=== PATIENT | female | born 2000 | race Caucasian/White ===

== ENCOUNTER → 2018-04-02 | Outpatient (CLI) | payer OTHER ==
[~2018-04-02] MED LIST: ACET-3017 PO; IBUP800T37 PO; SERT-184 PO
== END ==
LOC: LAB 15:34
PROVIDERS: ATTEND Obstetrics & Gynecology
DX: Z11.3 Encounter for screening for infections with a predominantly sexual mode of transmission (principal); Z11.8 Encounter for screening for other infectious and parasitic diseases
CPT/HCPCS: 87491; 87591

== ENCOUNTER → 2018-11-15 | Outpatient (CLI) | payer OTHER ==
[~2018-11-15] MED LIST changes: +FLU60VIA41 IM; +LEVO1IUD6; +SERT-181 PO
== END ==
LOC: LAB 08:35
PROVIDERS: ATTEND Obstetrics & Gynecology
DX: Z11.3 Encounter for screening for infections with a predominantly sexual mode of transmission (principal); Z11.8 Encounter for screening for other infectious and parasitic diseases; N94.9 Unspecified condition associated with female genital organs and menstrual cycle
CPT/HCPCS: 36415; 86592; 86703; 86803; 87210; 87340; 87491; 87591

== ENCOUNTER → 2018-12-12 | Outpatient (CLI) | payer OTHER ==
[2018-12-12 12:24] LABS: PLATELET COUNT, AUTOMATED 348 K/uL (150-450)
== END ==
LOC: LAB 11:38
PROVIDERS: ATTEND Obstetrics & Gynecology
DX: R10.31 Right lower quadrant pain (principal)
CPT/HCPCS: 36415; 82040; 82247; 82310; 82374; 82435; 82565; 82947; 84075; 84132; 84155; 84295; 84450; 84460; 84520; 85025; 87491; 87591

== ENCOUNTER → 2018-12-12 | Outpatient (CLI) | payer OTHER ==
[~2018-12-12] MED LIST changes: +ONDA4TAB97 PO; +TAMS0.4C25 PO
--- NOTE | 2018-12-12 14:40 | RADIOLOGY IMAGING REPORT ---
[place] [facility] [place] NAME: Claire Perez : 2000 MR: [id number] V: [id number] EXAM DATE: ORDERING PHYSICIAN: ОЛЕГ DALE TECHNOLOGIST: Location: [facility] Patient: Clarie Perez : 2000 Visit/Account:[id number] Date of Sevice: 12/12/2018 TRANSVAGINAL NON-OB INDICATION: Right lower quadrant pain, COMPARISON: None Available FINDINGS: Uterus measures 7.3 x 2.8 x 3.4 cm and is homogeneous in echotexture. No masses identified Double wall endometrial stripe measures 3 mm and is homogeneous in echotexture. An IUD is centrally located within the fundal portion There is no free fluid in the cul-de-sac. Urinary bladder is empty. Pelvic vessels appear unremarkable on this examination. Right ovary measures 2.4 x 1.3 x 1.7 cm and shows normal blood flow and contains several small follic les. Left ovary measures 2.5 x 1.8 x 2.8 cm and shows normal blood flow and contains several small follicl es. IMPRESSION: 1. Pelvic ultrasound is within normal limits Report Dictated By: London Mora at 12/12/2018 2:34 PM Report E-Signed By: London Mora at 12/12/2018 2:36 PM WSN:[id number]
== END ==
LOC: US 13:00
PROVIDERS: ATTEND Obstetrics & Gynecology
DX: R10.31 Right lower quadrant pain (principal)
CPT/HCPCS: 76830

== ENCOUNTER → 2018-12-27 | Outpatient (CLI) | payer OTHER ==
[~2018-12-27] MED LIST changes: +IOPAMIDOL 76% 100 ML INFUS BTL 100 ML ONE; +NITR-105 PO
--- NOTE | 2018-12-27 11:21 | RADIOLOGY IMAGING REPORT ---
[facility] PATIENT NAME: Claire Perez : 2000 MR: [id number] V: [id number] EXAM DATE: ORDERING PHYSICIAN: ОЛЕГ DALE TECHNOLOGIST: Location: [facility] - [place] Patient: Claire Perez : 2000 Visit/Account:[id number] Date of Sevice: 12/27/2018 EXAMINATION: CT Abdomen W/O Contrast CT Abdomen W/ Contrast CT Pelvis W/O Contrast CT Pelvis W/ Contrast HISTORY: Severe lower abdominal pain, right-sided flank pain TECHNIQUE: Spiral scans were obtained through the abdomen and pelvis before and during injection of nonionic iodinated intravenous contrast. One of the following dose optimization techniques was utili zed in the performance of this exam: Automated exposure control; adjustment of the mA and/or kV accor ding to the patient's size; or use of an iterative reconstruction technique. Specific details can b e referenced in the facility's radiology CT exam operational policy. Contrast: 75 mL of IV Isovue-[id number]. COMPARISON STUDIES: Correlation made with pelvic ultrasound 12/12/2018. FINDINGS: Liver / biliary: Negative Pancreas: Negative Spleen: Negative Adrenal glands: Negative Kidneys / retroperitoneum: There are no renal or ureteral calculi identified. Kidneys enhance homog eneously and symmetrically. There are no perinephric fluid collections. No masses are identified. There is no hydronephrosis. Pelvic structures: Uterus and adnexal structures are unremarkable. IUD is in place in good posit ion. Small to moderate volume of free fluid is present in the cul-de-sac, this was not clearly prese nt on previous ultrasound. Bladder is partially distended. Small amount of air is present within th e bladder, of uncertain etiology or significance. Bowel / peritoneum / mesenteries: There is no evidence of bowel obstruction. No bowel wall thickeni ng. There is no pneumatosis. No free air. Moderate to large volume of stool is present in the colo n. What appears to be appendix is identified, this is of normal caliber. There are no significant d iverticuli or evidence of diverticulitis. Vessels: Negative Musculoskeletal / Body wall: Negative Lymph node assessment: There are no nodes identified, enlarged by CT criteria. There is a nodular 6 mm left external iliac lymph node. Subcentimeter inguinal nodes noted bilaterally. Lower chest: Negative IMPRESSION: 1. Mild to moderate free fluid in the pelvis near compared to previous ultrasound study. Small amou nt of air in the bladder, of uncertain etiology or significance, query recent catheterization. Query symptoms of cystitis. 2. No renal or ureteral calculi identified to account for the patient's flank pain. 3. No acute findings in the bowel. There is no evidence of obstruction. Large amount stool the col on which could be indicative of constipation. Report Dictated By: Rachel Magana MD at 12/27/2018 10:26 AM Report E-Signed By: Rachel Magana MD at 12/27/2018 11:16 AM WSN:[email or web address]
== END ==
LOC: CT 01:28
PROVIDERS: ATTEND Obstetrics & Gynecology
DX: M54.6 Pain in thoracic spine (principal); R10.9 Unspecified abdominal pain; R31.29 Other microscopic hematuria; N20.0 Calculus of kidney
CPT/HCPCS: 74178; Q9967

== ENCOUNTER → 2019-01-27 | Outpatient (CLI) | payer OTHER ==
[~2019-01-27] MED LIST changes: +DOXY-179 PO; +FAMO20TA28 PO; +IBUP600T22 PO; -IOPAMIDOL 76% 100 ML INFUS BTL 100 ML ONE; +TRAZ100T31 PO
[2019-01-27 14:51] LABS: PLATELET COUNT, AUTOMATED 138 K/uL (150-450)
== END ==
LOC: LAB 14:14
PROVIDERS: ATTEND Obstetrics & Gynecology
DX: R51 Headache (principal); R11.0 Nausea
CPT/HCPCS: 36415; 85025